=== PATIENT | male | born 2000 | race African-American/Black ===

== ENCOUNTER 2025-06-01 18:26 | Emergency (ER) | payer OTHER, MEDICAID ==
[~2025-06-01] VITALS: Ht 172.7 cm; Wt 79.9 kg
[2025-06-01 19:48] LABS: BASO # 0.1 10^3/uL (0.0-0.2); BASO % 0.7 % (0.0-1.0); EOS # 0.1 10^3/uL (0.0-0.5); EOS % 1.0 % (0.0-3.0); LYMPH # 2.2 10^3/uL (1.5-5.0); LYMPH % 30.8 % (24.0-44.0); MONO # 0.5 10^3/uL (0.0-0.8); MONO % 6.8 % (2.0-8.0); NEUTROPHILS # 4.3 10^3/uL (1.5-8.5); NEUTROPHILS % 60.6 % (36.0-66.0); PLATELET COUNT, AUTOMATED 405 10^3/uL (150-450)
[2025-06-01] MEDS: KETOROLAC 30 MG/ML 1 ML VIAL IV ONE (19:52)
[2025-06-01] MEDS: NS (Normal Saline) 0.9% 1,000 ML IV ONE (19:53)
[2025-06-01 20:23] LABS: ALT/SGPT 34.0 U/L (7.0-40); AST/SGOT 28.0 U/L (<34); CALCIUM LEVEL 10.0 MG/DL (8.5-10.1); CARBON DIOXIDE LEVEL 30.0 MMOL/L (20-31); CHLORIDE LEVEL 106.0 MMOL/L (98-107); CREATININE FOR GFR 1.42 MG/DL (0.70-1.30); GLOMERULAR FILTRATION RATE 70.8 (>60); POTASSIUM SERUM 4.4 MMOL/L (3.5-5.1); SODIUM LEVEL 145.0 MMOL/L (136-145)
[2025-06-01 20:25] LABS: THYROXINE (T4) 7.0 UG/DL (4.5-10.9)
[2025-06-01] MEDS ORDERED: FLON1SPR NARES (20:40)
[2025-06-01 20:48] VITALS: BP 124/59; TEMP 98.2; O2SAT 98
[2025-06-01 22:13] LABS: T UPTAKE 27.8 % (22.5-37.0)
[2025-06-04 14:04] LABS: SOFIA COVID ANTIGEN NEGATIVE (NEGATIVE)
== END 2025-06-01 20:51 | disposition home or self-care (01) ==
LOC: M ED 18:26
DX: R51.9 Headache, unspecified (principal); R11.10 Vomiting, unspecified; J01.90 Acute sinusitis, unspecified
CPT/HCPCS: 70450; 80048; 80076; 83690; 84436; 84443; 84479; 85025; 87428; 96361; 96374; 96375; 99284; J1885; J2765